=== PATIENT | female | born 1990 | race Two or more races ===

== ENCOUNTER 2017-07-13 01:44 | Emergency (ER) | payer SELFPAY | END 2017-07-13 02:24 | disposition left against medical advice (07) | LOC: ED 01:44 | DX: Z02.89 Encounter for other administrative examinations (principal); H92.22 Otorrhagia, left ear ==

== ENCOUNTER 2017-12-06 12:24 | Emergency (ER) | payer SELFPAY ==
[2017-12-06 12:31] VITALS: TEMP 98.7
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
[2017-12-06 14:32] VITALS: BP 100/66; PULSE 72; RESP 18; O2SAT 98
== END 2017-12-06 14:53 | disposition home or self-care (01) ==
LOC: ED 12:24
DX: S99.921A Unspecified injury of right foot, initial encounter (principal); Y08.89XA Assault by other specified means, initial encounter; Y92.9 Unspecified place or not applicable